=== PATIENT | male | born 1970 | race Asian ===

== ENCOUNTER 2025-02-19 02:25 | Emergency (ER) | payer MEDICAID, SELFPAY ==
[2025-02-19 02:54] VITALS: BP 168/84; PULSE 93; RESP 18; TEMP 37.3; O2SAT 99
--- NOTE | 2025-02-19 05:28 | EDRME_ITS ---
Rapid Medical Screening Exam [facility] [place] Arrival date/time: 02/19/25 02:25 54M with history of pre-DM presents to ED with several days of transient/alternating bilateral foot pain (currently on L foot, but R foot yesterday) w/o fall/trauma or open wound. Patient states he's been on his feet in the past few days more. Patient has been taking 800 mg ibuprofen w/ minimal improvement. Chief Complaint: Extremity Injury, Lower Vital signs: Vital Signs Temperature 99.1 F 02/19/25 02:54 Pulse Rate 93 02/19/25 02:54 Respiratory Rate 18 02/19/25 02:54 Blood Pressure 168/84 H 02/19/25 02:54 Pulse Oximetry (%) 99 02/19/25 02:54 Oxygen Delivery Method Room Air 02/19/25 02:54
[2025-02-19] MEDS: DEXAMETHASONE SOD PHOS INJ 10 MG/ML VIAL PO (05:37)
--- NOTE | 2025-02-19 06:28 | EDNOTE_ITS ---
<Statement entered by Susu Patino MD - 02/20/25 14:30> As co-signing physician, I was present and available for consult prn. I concur with the plan and care as documented by the midlevel provider. Lower Extremity Injury RME/HPI General Chief Complaint: Extremity Injury, Lower Stated Complaint: Foot swollen Time Seen by Provider: 02/19/25 06:25 Arrival date/time: 02/19/25 02:25 54M with history of pre-DM presents to ED with several days of transient/alternating bilateral foot pain (currently on L foot, but R foot yesterday) w/o fall/trauma or open wound. Patient states he's been on his feet in the past few days more. Patient has been taking 800 mg ibuprofen w/ minimal improvement. Limitations: no limitations RME / HPI RME / HPI Narrative: 02/19/25 02:25 54M with history of pre-DM presents to ED with several days of transient/alternating bilateral foot pain (currently on L foot, but R foot yesterday) w/o fall/trauma or open wound. Patient states he's been on his feet in the past few days more. Patient has been taking 800 mg ibuprofen w/ minimal improvement. Related Data Previous Rx's ?Medication ?Instructions ?Recorded hydrocodone 5 mg-acetaminophen 325 1 tab PO BID PRN pa in #10 tabs 02/19/25 mg tablet ibuprofen 600 mg tablet 600 mg PO Q6H #30 tabs 02/19 Allergies Allergy/AdvReac Type Severity Reaction Status Date / Time No Known Allergies Allergy Verified 05/10/20 18:09 Review of Systems Review of Systems Systems Reviewed: All systems reviewed, normal except as documented Constitutional Constitutional: Reports system reviewed and no additional complaints, except as documented, Denies fever(s) and Denies headache(s) Eyes Eyes: Reports system reviewed and no additional complaints, except as documented and Denies blurry vision ENT Ears, Nose, Mouth, and Throat: Reports system reviewed and no additional complaints, except as documented, Denies headache(s), Denies nasal congestion and Denies nasal discharge Cardiovascular Cardiovascular: Reports system reviewed and no additional complaints, except as documented, Denies chest pain and Denies dyspnea Respiratory Respiratory: Reports system reviewed and no additional complaints, except as documented, Denies chest congestion, Denies cough and Denies dyspnea Gastrointestinal Gastrointestinal: Reports system reviewed and no additional complaints, except as documented and Denies abdominal pain Musculoskeletal Musculoskeletal: Reports system reviewed and no additional complaints, except as documented, Reports abnormal gait, Reports arthralgias and Denies deformity Integumentary/Breasts Skin/Breast: Reports system reviewed and no additional complaints, except as documented and Denies rash Neurologic Neurologic: Reports system reviewed and no additional complaints, except as documented, Reports as per HPI, Reports abnormal gait and Denies headache(s) Past Medical History Social History SMOKING STATUS: Former smoker ED Exam General Limitations: Present no limitations General appearance: Present alert and in no apparent distress Head Head exam: Present atraumatic Eye Eye exam: Present normal appearance, PERRL and EOMI ENT ENT exam: Present normal exam, normal oropharynx and mucous membranes moist Neck Neck exam: Present normal inspection, full ROM and trachea midline Chest Chest inspection: Present normal inspection and symmetric chest wall rise Respiratory Respiratory exam: Present normal lung sounds bilaterally Cardiovascular Cardiovascular exam: Present regular rate, normal rhythm and normal heart sounds Abdominal Exam Abdominal exam: Present soft and normal bowel sounds Extremities Exam Extremities exam: Present normal inspection, full ROM, tenderness and normal capillary refill; Absent pedal edema, joint swelling or calf tenderness Back Exam Back exam: Present normal inspection and full ROM Neurological Exam Neurological exam: Present alert, oriented X3, CN II-XII intact, normal gait and reflexes normal; Absent motor sensory deficit Psychiatric Psychiatric exam: Present normal affect and normal mood Skin Skin exam: Present warm, dry, intact and normal color; Absent cyanosis or erythema Course Quality Measures none Orders Category Date Time Status Dexamethasone Inj [Decadron Inj] Med 02/19/25 05:22 Discontinued 10 mg PO X1 ONE Vital Signs Vital signs: Vital Signs Temperature 99.1 F 02/19/25 02:54 Pulse Rate 93 02/19/25 02:54 Respiratory Rate 18 02/19/25 02:54 Blood Pressure 168/84 H 02/19/25 02:54 Pulse Oximetry (%) 99 02/19/25 02:54 Oxygen Delivery Method Room Air 02/19/25 02:54 O2 saturation 99% room air within normal limits Extremity Injury, Lower MDM Narrative MDM Narrative:: 54M with history of pre-DM presents to ED with several days of transient/alternating bilateral foot pain (currently on L foot, but R foot yesterday) w/o fall/trauma or open wound. Patient states he's been on his feet in the past few days more. Patient has been taking 800 mg ibuprofen w/ minimal improvement. At time my evaluation patient any for the last few hours patient requesting go home Patient was given dexamethasone here which he reports improved his pain On exam patient has no erythema no swelling negative Homans' sign did explain to the patient to symptoms persist or worsen after return for imaging Patient discharged with ibuprofen and [place] Patient discharged home in no distress to follow-up with primary care doctor in the next 24 to 48 hours and for any worsening symptoms to return to the ER immediately Patient data External records reviewed:: [facility] previous records Clinical information provided by:: patient Social determinants that could affect healthcare access:: none Patient has the following chronic illnesses:: None How is presenting disease/condition affected by chronic disease/condition?: no chronic disease Evaluation data The following diagnostics were reviewed and interpreted by me:: other (specify) (N/A) Lab and/or radiology exams considered but not ordered:: Consider not ordered Interpretation Summary: N/A Medications / Prescriptions Medications or Prescriptions considered but not ordered:: Given Medication administrations:: Medication Administration History Discontinued Medications Dexamethasone Sodium Phosphate (Dexamethasone Sod Phos Inj 10 Mg/Ml Vial) 10 mg PO X1 ONE Stop: 02/19/25 05:23 Last Admin: 02/19/25 05:37 Dose: 10 mg Documented By: SE Given Consultations Consultation(s) initiated? (list below): No Diagnosis Extremity Injury, Lower Differential Diagnosis: other (Foot sprain, foot fracture) Most likely diagnosis given after review of the tests above:: Foot pain Admission Indicated Admission indicated?: not indicated Admission Request Was there a request for admission?: No Disposition Plan Disposition Plan: Discharge Discharge Attestation Discharge Attestation: The patient and all family members were given an opportunity to ask questions and understood the discharge instructions. Discharge instructions specifically effects, indications for sooner follow up or return to the emergency department, and the expected course of current diagnosis. Patient condition: Stable Discharge Plan Plan Patient Disposition: HOME (Self Care) Disposition Comment: Stable Prescriptions/Referrals Prescriptions/Med Rec: New hydrocodone-acetaminophen 5-325 mg tablet 1 tab PO BID MDD 10 PRN (Reason: pain) Qty: 10 0RF ibuprofen 600 mg tablet 600 mg PO Q6H Qty: 30 0RF Problem List Clinical Impression: Left foot pain Patient/Caregiver Discharge Instructions Education Materials: ED RICE Additional Instructions: Please follow up with your primary care doctor in the next 24-48hrs for any worsening symptoms return here immediately Print Language: Cuban Stand Alone Forms: [employer] Award Info., Patient Portal Info Letter PA/MECHANICAL SYSTEMS DESIGN ENGINEER Supervising Physician PA/MECHANICAL SYSTEMS DESIGN ENGINEER Supervising Physician: Dr patino
== END 2025-02-19 07:01 | disposition home or self-care (01) ==
LOC: SERX 07:15
PROVIDERS: Emergency Provider Emergency Medicine
DX: M79.672 Pain in left foot (principal)
CPT/HCPCS: 99282; J1100

== ENCOUNTER 2025-07-27 23:16 | Emergency (ER) | payer MEDICAID, SELFPAY ==
[2025-07-27 23:16] VITALS: BMI 29.0
[2025-07-27 23:23] VITALS: BP 176/105; BP 185/105; PULSE 87; RESP 18; TEMP 37.2; O2SAT 99
--- NOTE | 2025-07-27 23:36 | PD.EDHA ---
ED Headache RME/HPI General Chief Complaint: Headache Stated Complaint: HEADACHE, BP HIGH Time Seen by Provider: 07/27/25 23:33 Arrival date/time: 07/27/25 23:16 54M with history of HTN presents to ED with several days of body aches and cough. Patient also has 1 day of GTZ relieved by ibuprofen. Patient hasn't been taking his BP meds this weekend, but took some today. Patient takes Benazepril. Patient denies dizziness, vision changes, seizures, and AMS. Limitations: no limitations Related Data Previous Rx's ?Medication ?Instructions ?Recorded hydrocodone 5 mg-acetaminophen 325 1 tab PO BID PRN pain #10 tabs 02/19/25 mg tablet ibuprofen 600 mg tablet 600 mg PO Q6H #30 tabs 02/19/25 Allergies Allergy/AdvReac Type Severity Reaction Status Date / Time No Known Allergies Allergy Verified 05/10/20 18:09 Review of Systems Review of Systems Systems Reviewed: All systems reviewed, normal except as documented Constitutional Constitutional: Reports as per HPI, Reports body ache(s) and Reports headache(s) ENT Ears, Nose, Mouth, and Throat: Reports headache(s) Respiratory Respiratory: Reports as per HPI and Reports cough Neurologic Neurologic: Reports headache(s) Past Medical History Social History SMOKING STATUS: Never smoker ED Exam General Limitations: Present no limitations General appearance: Present alert and in no apparent distress Head Head exam: Present atraumatic Eye Eye exam: Present normal appearance, PERRL and EOMI Neck Neck exam: Present normal inspection, full ROM and trachea midline Chest Chest inspection: Present normal inspection and symmetric chest wall rise Neurological Exam Neurological exam: Present alert and oriented X3 Psychiatric Psychiatric exam: Present normal affect and normal mood Skin Skin exam: Present warm, dry, intact and normal color Course Quality Measures none Orders Category Date Time Status Bedside COVID-19 Antigen Test NOW Care 07/27/25 23:33 Active Naproxen [Naprosyn] Med 07/27/25 23:33 Discontinued 500 mg PO X1 ONE hydrALAZINE HCL [Apresoline] Med 07/27/25 23:33 Discontinued 25 mg PO X1 ONE Vital Signs Vital signs: Vital Signs Temperature 99 F 07/27/25 23:23 Pulse Rate 87 07/27/25 23:23 Respiratory Rate 18 07/27/25 23:23 Blood Pressure 176/105 H 07/27/25 23:23 Pulse Oximetry (%) 99 07/27/25 23:23 Oxygen Delivery Method Room Air 07/27/25 23:23 O2 at 99% on RA and WNLs Headache MDM Narrative MDM Narrative:: 54M with history of HTN presents to ED with several days of body aches and cough. Patient also has 1 day of GTZ relieved by ibuprofen. Patient hasn't been taking his BP meds this weekend, but took some today. Patient takes Benazepril. Patient denies dizziness, vision changes, seizures, and AMS. Physical exam reveals normal pupil response and EOM. Speech normal. Gait normal. Normal WOB. Patient is afebrile, calm, and alert. Swabs neg. GTZ and BP improved with meds. Senior Counsel Commercial given. Patient data External records reviewed:: [facility] previous records Clinical information provided by:: patient Social determinants that could affect healthcare access:: none Patient has the following chronic illnesses:: HTN How is presenting disease/condition affected by chronic disease/condition?: exacerbated by Evaluation data The following diagnostics were reviewed and interpreted by me:: lab results Lab and/or radiology exams considered but not ordered:: ordered Interpretation Summary: above Medications / Prescriptions Medications or Prescriptions considered but not ordered:: ordered Medication administrations:: Medication Administration History Discontinued Medications Hydralazine HCl (Hydralazine Hcl 25 Mg Tablet) 25 mg PO X1 ONE Stop: 07/27/25 23:34 Last Admin: 07/27/25 23:40 Dose: 25 mg Documented By: DT Naproxen (Naproxen 250 Mg Tablet) 500 mg PO X1 ONE Stop: 07/27/25 23:34 Last Admin: 07/27/25 23:40 Dose: 500 mg Documented By: DT above Consultations Consultation(s) initiated? (list below): No Diagnosis Differential diagnosis headache: migraine, tension headache, subarachnoid hemorrhage, headache, meningitis, sinusitis, postconcussion syndrome and other (URI, HTN) Most likely diagnosis given after review of the tests above:: GTZ and HTN Admission Indicated Admission indicated?: not indicated Admission Request Was there a request for admission?: No Disposition Plan Disposition Plan: Discharge Discharge Attestation Discharge Attestation: The patient and all family members were given an opportunity to ask questions and understood the discharge instructions. Discharge instructions specifically effects, indications for sooner follow up or return to the emergency department, and the expected course of current diagnosis. Patient condition: Stable Discharge Plan Plan Patient Disposition: HOME (Self Care) Discharge Disposition comment: Stable Prescriptions/Referrals Prescriptions/Med Rec: No Action hydrocodone-acetaminophen 5-325 mg tablet 1 tab PO BID MDD 10 PRN (Reason: pain) Qty: 10 0RF ibuprofen 600 mg tablet 600 mg PO Q6H Qty: 30 0RF Referrals: No Primary/Family,Physician [Primary Care Provider] - In 1 week Problem List Clinical Impression: Headache, Hypertension, URI (upper respiratory infection) Patient/Caregiver Discharge Instructions Education Materials: ED Hypertension, Established Additional Instructions: Please follow-up with PCP within 24-48 hours and return immediately if symptoms worsen. Print Language: Malawian Stand Alone Forms: Patient Portal Info Letter CURTIS/ANGELITO Supervising Physician CURTIS/ANGELITO Supervising Physician: Dr. Brown
[2025-07-27 23:40] VITALS: BP 176/105; PULSE 91
[2025-07-27] MEDS: NAPROXEN 250 MG TABLET 500 MG PO (23:40)
[2025-07-28 01:08] VITALS: BP 152/89; PULSE 82; RESP 18; TEMP 37.2; O2SAT 99
== END 2025-07-28 01:18 | disposition home or self-care (01) ==
PROVIDERS: Emergency Provider Emergency Medicine
DX: J06.9 Acute upper respiratory infection, unspecified (principal); I10 Essential (primary) hypertension
CPT/HCPCS: 87811; 99283; A9270